=== PATIENT | female | born 1990 | race Two or more races ===

== ENCOUNTER 2024-06-26 07:54 | Outpatient (REF) | payer OTHER, SELFPAY ==
--- OUTSIDE RECORDS SUMMARY | 2024-06-26 07:59 | XMS_ITS | Clinical Summary ---
Author Organization [facility] Address [address] [place] [address] Phone Care Team Providers Care Mission Commander Name Role Phone Guille Borges MD Primary Care Provider +1- [phone] Allergies No known active allergies Medications lisinopril 10 MG tablet Take 1 tablet (10 mg total) by mouth 1 (one) time each day 90 tablet 3 4 Active Empagliflozin (Jardiance) 10 MG tablet Take 10 mg by mouth 1 (one) time each day in the morning 30 tablet 11 5 Active lisinopril 5 MG tablet TAKE 1 TABLET(5 MG) BY MOUTH 1 TIME EACH DAY 30 tablet 11 3 05/28/19 25 Discontinued Active Problems Problem Noted Date Diagnosed Date Microalbuminuria 12/31/2020 Encounters Date Type Department Care Team Description 05/28/2024 2:00 PM EST Office [facility] [address] [place] [phone] Guille Borges MD Persistent proteinuria (Primary Dx); Focal segmental glomerulosclerosis 04/10/2024 Refill [facility] [address] [place] [phone] Guille Borges MD from Last 3 Months Family History Medical History Relation Comments Coronary artery disease Mother Endometrial cancer Mother Hypertension Mother Kidney disease Mother Diabetes Paternal Grandmother Relation Status Comments Mother Paternal Grandmother Social History Tobacco Use Types Packs/Day Years Used Date Smoking Tobacco: Never Smokeless Tobacco: Never Alcohol Use Standard Drinks/Week Comments Never 0 (1 standard drink = 0.6 oz pur e alcohol) Comments Unknown Sex and Gender Information Value Date Recorded Sex Assigned at Not on file Legal Sex Female 10:31 AM EDT Gender Identity Not on file Sexual Orientation Not on file Last Filed Vital Signs Vital Sign Reading Time Taken Comments Blood Pressure 95/60 05/28/2024 2:22 PM EST Pulse - - Temperature - - Respiratory Rate - - Oxygen Saturation - - Inhaled Oxygen Concentration - - Weight - - Height - - Body Mass Index - - Plan of Treatment Upcoming Encounters Date Type Department Care Team (Late st Contact Info) Description 12/03/2024 1:45 PM EDT Office Visit [facility] [place], [address] [phone] Guille Borges MD [address] [place] [phone] Health Maintenance Due Date Last Done Comments Pneumococcal Vaccine: Pediat rics (0 to 5 Years) and At-Risk Patients (6 to 64 Years) (1 of 2 - PCV) 1997 Hepatitis B Vaccine (1 of 3 - 19+ 3-dose series) 2010 Influenza Vaccine (#1) 2024 , 02/18/2020, 02/01/2017 Procedures Procedure Name Priority Date/Time Associated Diagnosis Comments RENAL FUNCTION PANEL Routine 05/24/2024 7:44 AM EST Microalbuminuria Chronic kidney disease, not otherwise specified Proteinuria, not otherwise specified CBC AND DIFFERENTIAL Routine 05/24/2024 7:44 AM EST Microalbuminuria Chronic kidney disease, not otherwise specified Proteinuria, not otherwise specified PROTEIN / CREATININE RATIO, URINE Routine 05/24/2024 7:44 AM EST Microalbuminuria Chronic kidney disease, not otherwise specified Proteinuria, not otherwise specified from Last 3 Months Results * (ABNORMAL) Protein, Total, Random Urine w/Creatinine (Protein/Creat Ratio) (05/24/2024 7:44 AM EST) Creatinine, Ur 208.9 Not Estab. mg/dL [facility] Protein, Ur 983.1 Not Estab. mg/dL [facility] Comment: Results confirmed on dilution. Urine Protein/Creati nine Ratio 4,706(H) 0 - 200 mg/g creat [facility] Urine (Urine, Clean Catch) 05/24/2024 7:44 AM EST 05/24/2024 Guille Borges MD LAB URINE ORDERABLES Final Result [facility] [address] [place] [address] * CBC and Differential (05/24/2024 7:44 AM EST) Pathologist [facility] WBC 7.1 3.4 - 10.8 x10E3/uL [facility] RBC 4.48 3.77 - 5.28 x10E6/uL [facility] Hemoglobin 13.1 11.1 - 15.9 g/dL [facility] Hematocrit 39.6 34.0 - 46.6 % [facility] MCV 88 79 - 97 fL [facility] MCH 29.2 26.6 - 33.0 pg [facility] MCHC 33.1 31.5 - 35.7 g/dL [facility] RDW 13.1 11.7 - 15.4 % [facility] Platelets 336 150 - 450 x10E3/uL [facility] Neutrophils Relative 62 Not Estab. % [facility] Lymphocytes Relative 28 Not Estab. % [facility] Monocytes 6 Not Estab. % [facility] Eosinophils Relative 3 Not Estab. % [facility] Basophils Relative 1 Not Estab. % [facility] Neutrophils Absolute 4.4 1.4 - 7.0 x10E3/uL [facility] Lymphocytes Absolute 2.0 0.7 - 3.1 x10E3/uL [facility] Monocytes Absolute 0.5 0.1 - 0.9 x10E3/uL [facility] Eosinophils Absolute 0.2 0.0 - 0.4 x10E3/uL [facility] Basophils Absolute 0.1 0.0 - 0.2 x10E3/uL [facility] Immature Granulocytes 0 Not Estab. % [facility] Immature Grans (Absolute) 0.0 0.0 - 0.1 x10E3/uL [facility] Blood (Blood, Venous) 05/24/2024 7:44 AM EST 05/24/2024 us Guille Borges MD LAB BLOOD ORDERABLES Final Result [facility] [address] [place] [address] * (ABNORMAL) Renal Function Panel (05/24/2024 7:44 AM EST) Glucose 98 70 - 99 mg/dL [facility] BUN 16 6 - 20 mg/dL [facility] Creatinine 0.98 0.57 - 1.00 mg/dL [facility] eGFR CKD-EPI CR 2020 79 >59 mL/min/1.7 3 [facility] BUN/Creatinine Ratio 16 9 - 23 [facility] Sodium 141 134 - 144 mmol/L [facility] Potassium 4.3 3.5 - 5.2 mmol/L [facility] Chloride 109(H) 96 - 106 mmol/L [facility] Bicarbonate (CO2) 19(L) 20 - 29 mmol/L [facility] Calcium 9.5 8.7 - 10.2 mg/dL [facility] Albumin 3.9 3.9 - 4.9 g/dL [facility] Phosphorus 3.0 3.0 - 4.3 mg/dL [facility] Blood (Blood, Venous) 05/24/2024 7:44 AM EST 05/24/2024 Guille Borges MD LAB BLOOD ORDERABLES Final Result [facility] [address] [place] [address] from Last 3 Months Insurance [facility] Care Teams Mission Commander Relationship Specialty Start Date End Date Guille Borges MD [address] [place] [address] [place] [address] PCP - General Nephrology 11/21/23
--- OUTSIDE RECORDS SUMMARY | 2024-06-26 07:59 | XMS_ITS | Encounter Summary ---
Author Organization [facility] Address [place] [address] [place] [address] Phone Care Team Providers Care Metal Roaster Name Role Phone Guille Borges MD Primary Care Provider +1- [phone] Encounter Details Date Type Department Care Team (Late st Contact Info) Description 08/30/2023 Documentation Only [facility] [address] [place] [address] [place] [address] [place] [address] Social History Tobacco Use Types Packs/Day Years Used Date Smoking Tobacco: Never Smokeless Tobacco: Never Alcohol Use Standard Drinks/Week Comments Never 0 (1 standard drink = 0.6 oz pur e alcohol) Comments Unknown Sex and Gender Information Value Date Recorded Sex Assigned at Not on file Legal Sex Female 10:31 AM EDT Gender Identity Not on file Sexual Orientation Not on file documented as of this encounter Plan of Treatment Upcoming Encounters Date Type Department Care Team (Late Contact Info) Description 12/03/2024 1:45 PM EDT Office Visit [facility] [address] [place] [address] Guille Borges MD [address] [place] [address] [place] [phone] documented as of this encounter Visit Diagnoses Not on filedocumented in this encounter Care Teams Metal Roaster Relationship Specialty Start Date End Date Guille Borges MD [address] [place] [address] [place] [address] PCP - General Nephrology 11/21/23 documented as of this encounter
--- OUTSIDE RECORDS SUMMARY | 2024-06-26 07:59 | XMS_ITS | Encounter Summary ---
Author Organization [facility] Address [place] [place] [address] Phone Care Team Providers Care Shear Grinder Operator Helper Name Role Phone Guille Borges MD Primary Care Provider +1- [phone] Encounter Details Date Type Department Care Team (Latest Contact Info) Description 05/28/2024 2:00 PM EST Office Visit [facility] [place], [address] [place] [phone] Guille Borges MD [address] [place] [address] [place] [address] Persistent proteinuria (Primary Dx); Focal segmental glomerulosclerosis Social History Tobacco Use Types Packs/Day Years [...] on file documented as of this encounter Last Filed Vital Signs Vital Sign Reading Time Taken Comments Blood Pressure 95/60 05/28/2024 2:22 PM EST Pulse - - Temperature - - Respiratory Rate - - Oxygen Saturation - - Inhaled Oxygen Concentration - - Weight - - Height - - Body Mass Index - - documented in this encounter H&P Notes * Guille Borges MD - 05/28/2024 2:00 PM EST Images from the original note were not included. PATIENT: Courtney Felder : 1990 ENCOUNTER: 05/28/2024 PCP: Guille Borges MD Courtney Felder is a 33 y.o. year old patient who I have followed for a history of: Biopsy-proven FSGS In the interval since our last visit I have had the opportunity to review the following when available: -laboratory data, imaging studies, and cardiovascular data -current med list from the patient, the patient's pharmacy, [facility], and Care Everywhere During this visit I had the opportunity for a full review of systems and limited physical exam as outlined below, with the pertinent findings noted and others found to be negative or noncontributory to the current assessment of this patient. HPI: This patient has enjoyed relatively preserved kidney function. However, there has been a slight gradual increase in her creatinine over time. Her creatinine in 2020 was 0.7-0.8 mg/dL. It is almost 1 mg/dL at this point. She has 4.7 g of protein by protein creatinine ratio which is similar over the past 5 years. Because her blood pressure runs low, she really does not tolerate higher doses of AVELINA inhibitor's or angiotensin receptor blockers. Overall she is feeling well. She has had no edema. Shedoes not monitor her blood pressure at home. In the office it is always on the low side. PAST MEDICAL HISTORY: Patient Active Problem List Diagnosis Date Noted Microalbuminuria 12/31/2020 ROS: Constitutional: No fever. Respiratory: No shortness of breath. Cardiovascular: No chest pain. Gastrointestinal: No abdominal pain, nausea or vomiting, diarrhea, loss of appetite. Genitourinary: No hematuria, pain, or difficulty voiding. MEDICATIONS: Outpatient Encounter Medications as of 05/28/2024 Medication Sig Dispense Refill Empagliflozin (Jardiance) 10 MG tablet Take 10 mg by mouth 1 (one) time each day in the morning 30 tablet 11 lisinopril 10 MG tablet Take 1 tablet (10 mg total) by mouth 1 (one) time each day 90 tablet 3 [DISCONTINUED] lisinopril 5 MG tablet TAKE 1 TABLET(5 MG) BY MOUTH 1 TIME EACH DAY 30 tablet 11 No facility-administered encounter medications on file as of 05/28/2024. PHYSICAL EXAM: BP 95/60 Constitutional: No apparent distress Cardiovascular: No JVD elevation; no rub; regular Pulmonary/Chest: No rales; no wheeze Abdominal: Soft and non-tender. Extremities: Edema None LABS: Chemistry Lab Units 05/24/24 0744 CREATININE mg/dL 0.98 BUN mg/dL 16 POTASSIUM mmol/L 4.3 SODIUM mmol/L 141 CO2 mmol/L 19* CHLORIDE mmol/L 109* ALBUMIN g/dL 3.9 WBC AUTO x10E3/uL 7.1 HEMATOCRIT % 39.6 HEMOGLOBIN g/dL 13.1 PLATELETS AUTO x10E3/uL 336 Bone Mineral Lab Units 05/24/24 0744 CALCIUM mg/dL 9.5 PHOSPHORUS mg/dL 3.0 Urine Lab Units 05/24/24 0744 PROT/CREAT RATIO UR mg/g creat 4,706* SUMMARY: Based on the above findings, my interpretation of the available data, and my best efforts to reconcile the active medications, the following problems/diagnoses with recommendations for any further testing, treatment options, and follow-up are provided for your review: Chronic and Active Issues: 1. Persistent proteinuria 2. 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 She is on a low-dose angiotensin receptor hardik. Her blood pressure would not tolerate more. I discussed other options with her. I decided to start her on Jardiance hoping that the renal tubular glomerular feedback and autoregulation will help reduce intraglomerular pressure and slow the progression of her disease and reduce her proteinuria. She will have labs done in 3 months. I will see her back in 6 months. Orders Placed This Encounter Urine Protein / creatinine ratio Renal function panel Urinalysis with microscopic Empagliflozin (Jardiance) 10 MG tablet documented in this encounter Plan of Treatment Upcoming Encounters Date Type Department Care Team (Late st Contact Info) Description 12/03/2024 1:45 PM EDT Office Visit [facility] [place], [address] [place] [address] Guille Borges MD [address] [place] [address] Scheduled Orders Name Type Priority Associated Diagnoses Orde r Schedule Urine Protein / creatinine ratio Lab Routine Persistent proteinuria Focal segmental glomerulosclerosis Expected: 05/28/2024, Expires: 06/28/2025 Renal function panel Lab Routine Persistent proteinuria Focal segmental glomerulosclerosis Expected: 05/28/2024, Expires: 06/28/2025 Urinalysis with microscopic Lab Routine Persistent proteinuria Focal segmental glomerulosclerosis Expected: 05/28/2024, Expires: 06/28/2025 documented as of this encounter Visit Diagnoses Diagnosis Persistent proteinuria- Primary Focal segmental glomerulosclerosis documented in this encounter Care Teams Shear Grinder Operator Helper Relationship Specialty Start Date End Date Guille Borges MD [address] [place] [address] [place] [address] PCP - General Nephrology 11/21/23 documented as of this encounter
--- OUTSIDE RECORDS SUMMARY | 2024-06-26 07:59 | XMS_ITS | Encounter Summary ---
Author Organization [facility] Address [address] [place] [address] Phone Care Team Providers Care Configuration Management Analyst Name Role Phone Guille Borges MD Primary Care Provider +1- [phone] Encounter Details Date Type Department Care Team (Late st Contact Info) Description 09/13/2022 Documentation Only [facility] [address] [place] [address] Guille Borges MD [address] [place] [address] [place] [address] Social History Tobacco Use Types Packs/Day Years [...] Visit [facility] [address] [place] [place] [address] Guille Borges MD [address] [place] [address] [place] [address] documented as of this encounter Visit Diagnoses Not on filedocumented in this encounter Care Teams Configuration Management Analyst Relationship Specialty Start Date End Date Guille Borges MD [address] [place] [address] [place] [phone] PCP - General Nephrology 11/21/23 documented as of this encounter
--- OUTSIDE RECORDS SUMMARY | 2024-06-26 07:59 | XMS_ITS | Clinical Summary ---
Author Organization [facility] Address [address] [facility] [place] [address] Care Team Providers Care Crisis Intervention Counselor Name Role Phone Pcp, No Primary Care Provider [phone] Social History Tobacco Use Types Packs/Day Years Used Date Smoking Tobacco: Never Assessed Comments Unknown Sex and Gender Information Value Date Recorded Sex Assigned at Not on file Legal Sex Female 4:27 PM EDT Gender Identity Not on file Sexual Orientation Not on file Plan of Treatment Health Maintenance Due Date Last Done Comments Depression: Screening Annual ly using PHQ-2/9 in Adults 18 yrs or above (or HM Modifier)([facility]) 2009 Hepatitis C Virus Infection in Adolescents and Adults: Screening (or Modifier) ([facility]) 2009 SDOH Screening Reminder: Evelina mendoza for all adults ([facility]) 2009 Tobacco Smoking Cessation: i n Adults excluding Women: Behavioral and Pharmacotherapy Interventions ([facility]) 2009 DTaP/Tdap/Td Vaccines ([facility]) (1 - Tdap) 2010 Lipid Screening: Once for Wo men aged 20 to 45 yrs ([facility]) 2011 Cervical Cancer Screenin 1-65 yrs of age (or Modifier) 2012 Cervical Cancer Screening: P ap every 3 yrs pts age 21-65 2012 Cervical Cancer: Pap Screeni ng with Modifier timing ([facility]) 2012 Cervical Cancer: hrHPV alone or with cotesting Pap for Pts 30-65yrs screening every 5yrs ([facility]) 2012 Flu Vaccination: Yearly for ages 18mos through 64 years (or Modifier)([facility]) 12/15/2023 COVID-19 Vaccine Screening: Initial Series and Booster Status ([facility]) (2023- season) 2024 Zoster/Shingles Vaccine Seri es Screening: Adults aged 18+ yrs (or HM Modifiers)([facility]) (1 of 2) 2041 Pneumococcal Vaccination Scr eening: Pts 0-19 & 19-64 yrs of age ([facility]) Aged Out No longer eligible based on patient's age to complete this topic Medical Devices Not on file Insurance [facility] Care Teams Crisis Intervention Counselor Relationship Specialty Start Date End Date Pcp, Christine PCP - General Family Medicine 08/24/20
--- OUTSIDE RECORDS SUMMARY | 2024-06-26 07:59 | XMS_ITS | Encounter Summary ---
Author Organization [facility] Address [address] [place] [address] Phone Care Team Providers Care Dice Table Person Name Role Phone Guille oBrges MD Primary Care Provider [phone]- [phone] Encounter Details Date Type Department Care Team (Late st Contact Info) Description 08/17/2022 Documentation Only [facility] [address] [place] [address] Dayami Sotomayor [address] [place] [address] Social History Tobacco Use Types [...] Visit [facility] [address] [place] [address] Guille Borges MD [address] [place] [address] [place] [phone] documented as of this encounter Visit Diagnoses Not on filedocumented in this encounter Care Teams Dice Table Person Relationship Specialty Start Date End Date Guille Borges MD [address] [place] [address] [place] [phone] PCP - General Nephrology 11/21/23 documented as of this encounter
== END 2024-06-26 07:55 | disposition home or self-care (01) ==
LOC: HO.SH 07:54
PROVIDERS: Visit Provider Physician Assistant
DX: Z01.118 Encounter for examination of ears and hearing with other abnormal findings (principal); H90.3 Sensorineural hearing loss, bilateral
CPT/HCPCS: 92557; 92567; 92588